=== PATIENT | female | born 1985 | race African-American/Black ===

== ENCOUNTER 2018-11-20 21:31 | Emergency (ER) | payer OTHER ==
[2018-11-20 22:12] VITALS: BP 127/75; PULSE 69; TEMP 98.1; BMI 31.3
--- NOTE | 2018-11-20 23:19 | PDOC ---
History of Present Illness - General Chief Complaint: Pain Stated Complaint: ABDOMINAL CRAMPING Time Seen by Provider: 11/20/18 23:17 History Source: Patient Exam Limitations: No Limitations - History of Present Illness Initial Comments: 33 yo Obese F w a pmh of sciatica and fibroids presents to the ER via private auto for intense cramping. She states she has LLQ abdominal pain which does not radiate and is associated with minor urgency but no dysuria, frequency, or hematuria. She denies having recent fevers, chills or infections. She states she has felt mild nausea but has not experienced any emesis. She denies having a personal or family history of kidney stones. LMP: September 23. Patient states her period is 2 weeks late. PCP: None now. Formerly Marlene Dupree PSH: Fibroid surgical removal Social Hx: Smokes 4 cigarettes per day for 10 years. Denies alcohol or other substance usage. Allergies: NKDA, seasonal. Past History - Past Medical History Allergies/Adverse Reactions: Allergies Allergy/AdvReac Type Severity Reaction Status Date / Time No Known Allergies Allergy Verified 11/20/18 22:12 Home Medications: Ambulatory Orders Ibuprofen 800 mg PO TID PRN #30 tablet 01/29/16 Oxycodone HCl/Acetaminophen [Percocet 5-325 mg Tablet] 1 tab PO Q6H PRN #10 tablet MDD 4 01/29/16 Prednisone [Deltasone] 60 mg PO DAILY #5 tablet 01/29/16 COPD: No Other medical history: chronic back pain - Suicide/Smoking/Psychosocial Hx Smoking History: Current every day smoker Have you smoked in the past 12 months: Yes Number of Cigarettes Smoked Daily: 4 Information on smoking cessation initiated: No Hx Alcohol Use: No Drug/Substance Use Hx: No Substance Use Type: None Review of Systems - Review of Systems Able to Perform ROS?: Yes Comments:: CONSTITUTIONAL: Absent: fever, no chills, no fatigue EYES: Absent: visual changes ENT: Absent: ear pain, no sore throat CARDIOVASCULAR: Absent: chest pain, no palpitations RESPIRATORY: Absent: cough, no SOB GI: Present: Abdominal pain, nausea Absent: no vomiting, no constipation, no diarrhea GENITOURINARY: Present: Urgency Absent: dysuria, no frequency, no hematuria MUSKULOSKELETAL: Absent: back pain, no arthralgia, no myalgia SKIN: Absent: rash NEURO: Absent: headache *Physical Exam - Vital Signs Last Vital Signs Temp Pulse Resp BP Pulse Ox 98.1 F 69 18 127/75 100 11/20/18 22:09 11/20/18 22:09 11/20/18 22:09 11/20/18 22:09 11/20/18 22:09 - Physical Exam Comments: GENERAL: Well-appearing, well-nourished. No apparent distress. HEENT: Normocephalic, atraumatic. PERRL, EOM intact. CARDIOVASCULAR: Normal S1, S2. Regular rate and rhythm. PULMONARY: No evidence of respiratory distress. Lungs clear to auscultation bilaterally. No wheezing, rales or rhonchi. ABDOMEN: Mild Suprapubic TTP. There is also mild LLQ TTP. Abdomen is still soft and non- distended. EXTREMITIES: Normal ROM in all four extremities. No gross deformities. SKIN: Warm, dry. No rash NEUROLOGICAL: No focal neurological deficits. ED Treatment Course - LABORATORY CBC & Chemistry Diagram: 11/21/18 00:05 11/21/18 00:05 Medical Decision Making - Medical Decision Making 33 yo Obese F w a pmh of sciatica and fibroids presents to the ER via private auto for intense cramping. She states she has LLQ abdominal pain which does not radiate and is associated with minor urgency but no dysuria, frequency, or hematuria. She denies having recent fevers, chills or infections. She states she has felt mild nausea but has not experienced any emesis. She denies having a personal or family history of kidney stones. LMP: September 23. Patient states her period is 2 weeks late. VS: WNL DDx IBNLT: - IUP vs ectopic, UTI/pylo, renal colic, Ovarian cyst/ torsion, fibroids Plan: Labs, Urine, TVUS, IV hydration, analgesia, re-assess. Labs: Unremarkable, HCG negative. TVUS: Uterine fibroids Patient feels better after analgesia. Will DC patient with Ob follow up. *DC/Admit/Observation/Transfer Diagnosis at time of Disposition: Abdominal pain, Fibroids - Discharge Dispostion Disposition: HOME Condition at time of disposition: Stable Decision to Admit order: No - Referrals Referrals: Carly Goddard MD [Staff Physician] - - Patient Instructions Printed Discharge Instructions: DI for Uterine Fibroids Additional Instructions: You came into the ER with abdominal pain. The Ultrasound showed you have uterine fibroids. Please make sure to schedule a follow up appointment with an OB doctor in the next 3 to 5 days. We are attaching the number of one for you to call if you don' t have one. Come back to the ER immediately if your pain worsens, you start vomiting, or have any other new or worsening concerns. Thank you for coming to the [facility] ER. We hope you feel better soon! Print Language: HONDURAN - Post Discharge Activity
[2018-11-20] MEDS ORDERED: SODIUM CHLORIDE 1,000 ML IV STA (23:33)
[2018-11-20] MEDS ORDERED: ACETAMINOPHEN 1000 MG/100 ML VIAL (NON FORMULARY) IVPB ONE (23:33)
[2018-11-21 00:30] LABS: PH,URINE 6.5 (5.0-8.0); URINE APPEARANCE CLEAR; URINE BILIRUBIN NEGATIVE (NEGATIVE); URINE COLOR YELLOW; URINE GLUCOSE (UA) NEGATIVE (NEGATIVE); URINE KETONE NEGATIVE (NEGATIVE); URINE LEUK ESTERASE NEGATIVE (NEGATIVE); URINE NITRITE NEGATIVE (NEGATIVE); URINE PROTEIN NEGATIVE (NEGATIVE); URINE UROBILINOGEN 0.2 mg/dL (0.2-1.0)
[2018-11-21 00:31] LABS: EOS % 1.8 % (0-4.5); HEMATOCRIT 36.5 % (32.4-45.2); HEMOGLOBIN 11.7 GM/dL (10.7-15.3); MCH 26.8 pg (25.7-33.7); MCHC 32.2 g/dl (32.0-36.0); MEAN CELL VOLUME 83.3 fl (80-96); MEAN PLT VOLUME 10.8 fl (7.5-11.1); MONO % 5.9 % (3.8-10.2); NEUT % 40.3 % (42.8-82.8); PLATELET COUNT 191 K/MM3 (134-434); RBC 4.38 M/mm3 (3.60-5.2); RDW 14.2 % (11.6-15.6); WHITE BLOOD COUNT 7.2 K/mm3 (4.0-10.0)
[2018-11-21] MEDS ORDERED: ACETAMINOPHEN INJECTION 100 ML IVPB ONE (00:31)
[2018-11-21 00:58] LABS: ALBUMIN 3.7 g/dl (3.4-5.0); ALK PHOS 80 U/L (45-117); ANION GAP 2 MMOL/L (8-16); BILIRUBIN,TOTAL 0.3 mg/dL (0.2-1); BLOOD UREA NITROGEN 13 mg/dL (7-18); CALCIUM 9.9 mg/dL (8.5-10.1); CHLORIDE 108 mmol/L (98-107); CO2 28 mmol/L (21-32); CREATININE 0.7 mg/dL (0.55-1.3); GLUCOSE,RANDOM 89 mg/dL (74-106); LIPASE 109 U/L (73-393); POTASSIUM 4.2 mmol/L (3.5-5.1); SGOT/AST 14 U/L (15-37); SGPT/ALT 19 U/L (13-61); SODIUM 138 mmol/L (136-145); TOT PROT 7.6 g/dl (6.4-8.2)
--- NOTE | 2018-11-21 01:38 | PDOC ---
Documentation entered by Barbra Womack SCRIBE, acting as scribe for Whitney Starr MD. Whitnye Starr MD: This documentation has been prepared by the Vu hancock Daisy, SCRIBE, under my direction and personally reviewed by me in its entirety. I confirm that the documentation accurately reflects all work, treatment, procedures, and medical decision making performed by me. Attending Attestation - Resident Resident Name: Renny Bowman - ED Attending Attestation I have performed the following: I have examined & evaluated the patient, The case was reviewed & discussed with the resident, I agree w/resident's findings & plan - HPI HPI: 11/21/18 01:21 33 yo female p/w some nausea and vomiting and dysuria with left suprapubic pain - Physicial Exam PE: 11/21/18 01:24 wnwd 33 yo female with pelvic discomfort head ncat neck supple lungs cta b/l cvs [id number] abd no rebound, no guarding ext no edema, no tenderness,no deformities skin warm and dry no cva tenderness neuro axox3,ambulatory,no focal neuro deficits psych appropriate - Medical Decision Making 11/21/18 01:28 negative test cbc unremarkable chemistries wnl urinalysis negative pelvic US is pending to r/o ruptures cyst or torsion
--- NOTE | 2018-11-21 08:34 | EKG ---
Test Reason : Blood Pressure : / mmHG Vent. Rate : 066 BPM Atrial Rate : 066 BPM P-R Int : 146 ms QRS Dur : 084 ms QT Int : 388 ms P-R-T Axes : 058 017 014 degrees QTc Int : 406 ms NORMAL SINUS RHYTHM NORMAL ECG NO PREVIOUS ECGS AVAILABLE Confirmed by MD DONAVAN, ASHER ([id number]) on 11/21/2018 8:34:31 AM Referred By: Confirmed By:ASHER GO MD
== END 2018-11-21 03:21 | disposition home or self-care (01) ==
LOC: JER 21:31
PROC: 3E033NZ Introduction of Analgesics, Hypnotics, Sedatives into Peripheral Vein, Percutaneous Approach (ICD-10-PCS; principal; 2018-11-20)
DX: D25.9 Leiomyoma of uterus, unspecified (principal)
CPT/HCPCS: 36415; 76830-TC; 80053; 81003; 83690; 84702; 84703; 85025; 87086; 93005; 93010; 99281-25; J0131; J7030

== ENCOUNTER 2019-05-16 03:42 | Inpatient (IN) | payer OTHER ==
--- NOTE | 2019-05-16 04:16 | PDOC ---
Attending Attestation - Resident Resident Name: Jhonatan Holguin - ED Attending Attestation I have performed the following: I have examined & evaluated the patient, The case was reviewed & discussed with the resident, I agree w/resident's findings & plan - HPI HPI: 05/16/19 05:51 see resident hpi - Physicial Exam PE: 05/16/19 05:52 agree with resident exam - Medical Decision Making 05/16/19 05:52 34-year-old female with left upper back pain and dyspnea D-dimer is elevated Plan for CTA of the chest to rule out pulmonary embolism Tylenol for pain Discharge pending CTA results
[2019-05-16] MEDS ORDERED: ACETAMINOPHEN 1000 MG/100 ML VIAL (NON FORMULARY) IVPB ONE (04:22)
[2019-05-16] MEDS ORDERED: SODIUM CHLORIDE 1,000 ML IV STA (04:22)
[2019-05-16] MEDS ORDERED: ACETAMINOPHEN INJECTION 100 ML IVPB ONE (04:27)
--- NOTE | 2019-05-16 04:29 | PDOC ---
History of Present Illness - General Chief Complaint: Shortness of Breath Stated Complaint: DIFFICULTY BREATHING Time Seen by Provider: 05/16/19 04:16 History Source: Patient Exam Limitations: No Limitations - History of Present Illness Initial Comments: 05/16/19 04:28 34 yo F with a hx of sciatica presents to the emergency department with left posterior pleuritic back pain with sudden onset 2 hours prior to presentation. Denies previous pain in this region in the past. States the pain onsets when she takes deep breaths only and worsens when she lays flat. Denies chest pain but endorses SOB. She states the pain is non radiating. Denies recent travels, hx of DVT/PE, recent surgeries, recent immobilizations, and recent hormone use. Allergies: NKDA Denies alcohol, but endorses 1/4 pack of tobacco use per day and marijuana use weekly. Past History - Past Medical History Allergies/Adverse Reactions: Allergies Allergy/AdvReac Type Severity Reaction Status Date / Time No Known Allergies Allergy Verified 05/16/19 04:20 Home Medications: Ambulatory Orders Ibuprofen 800 mg PO TID PRN #30 tablet 01/29/16 Oxycodone HCl/Acetaminophen [Percocet 5-325 mg Tablet] 1 tab PO Q6H PRN #10 tablet MDD 4 01/29/16 Prednisone [Deltasone] 60 mg PO DAILY #5 tablet 01/29/16 COPD: No - Psycho Social/Smoking Cessation Hx Smoking History: Current some day smoker Have you smoked in the past 12 months: Yes Number of Cigarettes Smoked Daily: 4 Information on smoking cessation initiated: No Hx Alcohol Use: No Drug/Substance Use Hx: No Substance Use Type: None Review of Systems - Review of Systems Able to Perform ROS?: Yes Is the patient limited Greek proficient: No Constitutional: No: Chills, Diaphoresis, Fever, Weakness HEENTM: No: Eye Pain, Ear Pain, Nose Pain, Throat Pain, Mouth Pain Respiratory: Yes: Shortness of Breath. No: Cough, Hemoptysis Cardiac (ROS): No: Chest Pain, Lightheadedness, Palpitations ABD/GI: No: Constipated, Diarrhea, Nausea, Rectal Bleeding, Vomiting, Tarry Stools : No: Burning, Dysuria, Hematuria Musculoskeletal: Yes: Back Pain (left back). No: Joint Pain, Neck Pain Integumentary: No: Bruising, Erythema, Rash Neurological: No: Headache, Numbness, Tingling, Tremors Psychiatric: No: Change in Appetite Endocrine: No: Unexplained Weight Gain Hematologic/Lymphatic: No: Anemia *Physical Exam - Vital Signs Last Vital Signs Temp Pulse Resp BP Pulse Ox 98.4 F 91 H 18 141/86 97 05/16/19 03:45 05/16/19 03:45 05/16/19 03:45 05/16/19 03:45 05/16/19 03:45 - Physical Exam General Appearance: Yes: Nourished, Appropriately Dressed, Obese. No: Apparent Distress, Intoxicated HEENT: positive: EOMI, DIEGO, Normal Voice, Symmetrical, Pharynx Normal, Hearing Grossly Normal. negative: Pale Conjunctivae, Scleral Icterus (R), Scleral Icterus (L), Muffled/Hoarse voice, Pharyngeal Erythema, Tonsillar Exudate, Tonsillar Erythema, Nasal Congestion, Rhinorrhea, Excessive drooling Neck: positive: Trachea midline, Supple. negative: Tender Respiratory/Chest: positive: Lungs Clear, Decreased Breath Sounds. negative: Chest Tender, Respiratory Distress, Accessory Muscle Use Cardiovascular: positive: Regular Rhythm, Regular Rate, S1, S2. negative: Systolic Murmur Gastrointestinal/Abdominal: positive: Normal Bowel Sounds, Flat, Soft. negative : Tender, Distended, Guarding Musculoskeletal: positive: Normal Inspection. negative: CVA Tenderness, Vertebral Tenderness Extremity: positive: Normal Capillary Refill, Normal Inspection, Normal Range of Motion. negative: Tender, Swelling, Calf Tenderness Integumentary: positive: Normal Color, Dry, Warm. negative: Swelling, Ecchymosis Neurologic: positive: Fully Oriented, Alert, Normal Mood/Affect ED Treatment Course - LABORATORY CBC & Chemistry Diagram: 05/16/19 04:30 05/16/19 04:30 Medical Decision Making - Medical Decision Making 34 yo F with a hx of sciatica presents to the emergency department with left posterior pleuritic back pain with sudden onset 2 hours prior to presentation Initial vitals: Initial Vital Signs Temp Pulse Resp BP Pulse Ox 98.4 F 91 H 18 141/86 97 05/16/19 03:45 05/16/19 03:45 05/16/19 03:45 05/16/19 03:45 05/16/19 03:45 Work up: patient presents to the emergency department with SOB with pleuritic like pain in the left upper back. concerns exist for PE vs PNA vs msk strain. will obtain d-dimer, cbc, cmp, ekg, trop, cxr, ua, urine , and urine culture. d-dimer was elevated, will obtain CTA chest. Laboratory Tests 05/16/19 05/16/19 05/16/19 04:30 04:30 04:30 WBC 6.8 RBC 4.45 Hgb 11.2 Hct 35.2 MCV 79.1 L MCH 25.1 L MCHC 31.7 L RDW 13.3 Plt Count 275 D MPV 9.8 Absolute Neuts (auto) 5.0 Neutrophils % 73.5 D Lymphocytes % 16.6 D Monocytes % 7.6 Eosinophils % 1.3 Basophils % 1.0 Nucleated RBC % 0 D-Dimer 946 H Sodium 136 Potassium 4.1 Chloride 103 Carbon Dioxide 27 Anion Gap 6 L BUN 6.6 L Creatinine 0.8 Est GFR (CKD-EPI)AfAm 111.48 Est GFR (CKD-EPI)NonAf 96.19 Random Glucose 97 Calcium 10.2 H Total Bilirubin 0.4 AST 21 ALT 23 Alkaline Phosphatase 149 H Creatine Kinase 98 Troponin I < 0.02 Total Protein 8.1 Albumin 3.4 Serum , Qual Urine Color Urine Appearance Urine pH Ur Specific [place] Urine Protein Urine Glucose (UA) Urine Ketones Urine Blood Urine Nitrite Urine Bilirubin Urine Urobilinogen Ur Leukocyte Esterase 05/16/19 05/16/19 04:30 05:41 WBC RBC Hgb Hct MCV MCH MCHC RDW Plt Count MPV Absolute Neuts (auto) Neutrophils % Lymphocytes % Monocytes % Eosinophils % Basophils % Nucleated RBC % D-Dimer Sodium Potassium Chloride Carbon Dioxide Anion Gap BUN Creatinine Est GFR (CKD-EPI)AfAm Est GFR (CKD-EPI)NonAf Random Glucose Calcium Total Bilirubin AST ALT Alkaline Phosphatase Creatine Kinase Troponin I Total Protein Albumin Serum , Qual Negative Urine Color Yellow Urine Appearance Clear Urine pH 6.5 Ur Specific [place] 1.016 Urine Protein Negative Urine Glucose (UA) Negative Urine Ketones Trace H Urine Blood Negative Urine Nitrite Negative Urine Bilirubin Negative Urine Urobilinogen 0.2 Ur Leukocyte Esterase Negative EKG shows NSR with TN of 144 ms, QRS 78 ms, ventricular rate of 79 bpm, and normal axis. No ST elevations or depressions. 05/16/19 07:31 CT shows pneumonia with possible tumor with metastatic adenopathy. Patient to be admitted for neoplastic work up. Will obtain blood cultures and start on ceftriaxone and azithromax. Patient states her maternal grandmother had breast cancer. Paternal grandfather had cancer of unknown origin. Per the patient, she denies change in consistency of her breasts consistent with lumps Patient to be admitted for PNA with concurrent neoplastic process with metastatic adenopathy. Discharge - Discharge Information Problems reviewed: Yes Clinical Impression/Diagnosis: Pneumonia, Metastatic disease, Shortness of breath Condition: Guarded - Follow up/Referral - Patient Discharge Instructions - Post Discharge Activity
[2019-05-16 04:53] LABS: EOS % 1.3 % (0-4.5); HEMATOCRIT 35.2 % (32.4-45.2); HEMOGLOBIN 11.2 GM/dL (10.7-15.3); LYMPH % 16.6 % (8-40); MCH 25.1 pg (25.7-33.7); MCHC 31.7 g/dl (32.0-36.0); MEAN CELL VOLUME 79.1 fl (80-96); MEAN PLT VOLUME 9.8 fl (7.5-11.1); MONO % 7.6 % (3.8-10.2); NEUT % 73.5 % (42.8-82.8); PLATELET COUNT 275 K/MM3 (134-434); RBC 4.45 M/mm3 (3.60-5.2); RDW 13.3 % (11.6-15.6); WHITE BLOOD COUNT 6.8 K/mm3 (4.0-10.0)
[2019-05-16 05:21] LABS: ALBUMIN 3.4 g/dl (3.4-5.0); ALK PHOS 149 U/L (45-117); ANION GAP 6 MMOL/L (8-16); BILIRUBIN,TOTAL 0.4 mg/dL (0.2-1); BLOOD UREA NITROGEN 6.6 mg/dL (7-18); CALCIUM 10.2 mg/dL (8.5-10.1); CHLORIDE 103 mmol/L (98-107); CO2 27 mmol/L (21-32); CREATININE 0.8 mg/dL (0.55-1.3); GLUCOSE,RANDOM 97 mg/dL (74-106); POTASSIUM 4.1 mmol/L (3.5-5.1); SGOT/AST 21 U/L (15-37); SGPT/ALT 23 U/L (13-61); SODIUM 136 mmol/L (136-145); TOT PROT 8.1 g/dl (6.4-8.2)
[2019-05-16] MEDS ORDERED: CEFTRIAXONE 1,000 MG in DEXTROSE 5%-WATER - 50 ML IVPB ONE (06:47)
[2019-05-16 06:49] LABS: PH,URINE 6.5 (5.0-8.0); URINE APPEARANCE CLEAR; URINE BILIRUBIN NEGATIVE (NEGATIVE); URINE COLOR YELLOW; URINE GLUCOSE (UA) NEGATIVE (NEGATIVE); URINE KETONE TRACE (NEGATIVE); URINE LEUK ESTERASE NEGATIVE (NEGATIVE); URINE NITRITE NEGATIVE (NEGATIVE); URINE PROTEIN NEGATIVE (NEGATIVE); URINE UROBILINOGEN 0.2 mg/dL (0.2-1.0)
[2019-05-16] MEDS ORDERED: AZITHROMYCIN IVPB 500 MG in DEXTROSE 5%-WATER - 250 ML IVPB ONE (07:10)
[2019-05-16] MEDS ORDERED: CEFTRIAXONE 1 GM/50 ML BAG ONE (07:43)
[2019-05-16] MEDS ORDERED: ACETAMINOPHEN 325 MG TABLET (FP) PO PRN (08:26)
[2019-05-16] MEDS ORDERED: AZITHROMYCIN IVPB 500 MG/250 ML BAG IVPB ONE (08:58)
[2019-05-16] MEDS ORDERED: SODIUM CHLORIDE 1,000 ML IV SCH (09:00)
--- NOTE | 2019-05-16 09:01 | PN ---
Teaching Attending Note Name of Resident: Stacey Guajardo ATTENDING PHYSICIAN STATEMENT I saw and evaluated the patient. I reviewed the resident's note and discussed the case with the resident. I agree with the resident's findings and plan as documented. SUBJECTIVE: Patient is a 34yo female with PMHx of sciatica and arthritis who presents with shortness of breath with pleuritic chest pain on deep respiration specially on the left side. No fever or chills, c/o nonproductive cough. OBJECTIVE: Vital Signs Temperature 98.0 F 05/16/19 08:00 Pulse Rate 81 05/16/19 08:00 Respiratory Rate 22 H 05/16/19 08:00 Blood Pressure 140/90 05/16/19 08:00 O2 Sat by Pulse Oximetry (%) 100 05/16/19 08:00 GENERAL: The patient is awake, alert, and fully oriented, in no acute distress. HEAD: Normal with no signs of trauma. EYES: PERRL, extraocular movements intact, sclera anicteric, conjunctiva clear. ENT: Ears normal, oropharynx clear without exudates, moist mucous membranes. NECK: Trachea midline, full range of motion, supple. LUNGS: decreased Breath sounds bl, no wheezes, no crackles, no accessory muscle use. HEART: Regular rate and rhythm, S1, S2 without murmur, rub or gallop. ABDOMEN: Soft, nontender, nondistended, normoactive bowel sounds, no guarding, no rebound, no hepatosplenomegaly, no masses. EXTREMITIES: 2+ pulses, warm, well-perfused, no edema. NEUROLOGICAL: Cranial nerves II through XII grossly intact. Normal speech, gait not observed. PSYCH: Normal mood, normal affect. SKIN: Warm, dry, normal turgor, no rashes or lesions noted CBCD WBC 6.8 K/mm3 (4.0-10.0) 05/16/19 04:30 RBC 4.45 M/mm3 (3.60-5.2) 05/16/19 04:30 Hgb 11.2 GM/dL (10.7-15.3) 05/16/19 04:30 Hct 35.2 % (32.4-45.2) 05/16/19 04:30 MCV 79.1 fl (80-96) L 05/16/19 04:30 MCHC 31.7 g/dl (32.0-36.0) L 05/16/19 04:30 RDW 13.3 % (11.6-15.6) 05/16/19 04:30 Plt Count 275 K/MM3 (134-434) D 05/16/19 04:30 MPV 9.8 fl (7.5-11.1) 05/16/19 04:30 CMP Sodium 136 mmol/L (136-145) 05/16/19 04:30 Potassium 4.1 mmol/L (3.5-5.1) 05/16/19 04:30 Chloride 103 mmol/L (98-107) 05/16/19 04:30 Carbon Dioxide 27 mmol/L (21-32) 05/16/19 04:30 Anion Gap 6 MMOL/L (8-16) L 05/16/19 04:30 BUN 6.6 mg/dL (7-18) L 05/16/19 04:30 Creatinine 0.8 mg/dL (0.55-1.3) 05/16/19 04:30 Random Glucose 97 mg/dL (74-106) 05/16/19 04:30 Calcium 10.2 mg/dL (8.5-10.1) H 05/16/19 04:30 Total Bilirubin 0.4 mg/dL (0.2-1) 05/16/19 04:30 AST 21 U/L (15-37) 05/16/19 04:30 ALT 23 U/L (13-61) 05/16/19 04:30 Alkaline Phosphatase 149 U/L (45-117) H 05/16/19 04:30 Total Protein 8.1 g/dl (6.4-8.2) 05/16/19 04:30 Albumin 3.4 g/dl (3.4-5.0) 05/16/19 04:30 CARDIAC ENZYMES Creatine Kinase 98 U/L (26-192) 05/16/19 04:30 Troponin I < 0.02 ng/ml (0.00-0.05) 05/16/19 04:30 CTA: LLL consolidation/pneumonia , possible tumor with metastatic adenopathy. ASSESSMENT AND PLAN: Patient is a 34yo female with pmhx of sciatica and arthritis who presents with shortness of breath. # LLL Pneumonia: Rocephin/zithro # multiple lung tumor with metastatic adenopathy: pulmonary and hem/onc consult for further w/u # Hypercalcemia r/o bone mets : IVF hydration, bone survey # b/l HILAR Adenopathy can't r/o sarcoid ty. elevated calcium level with Fhx of sarcoid. Bone survey ordered DVT Px: Heparin sq
--- NOTE | 2019-05-16 09:52 | EKG ---
Test Reason : Blood Pressure : / mmHG Vent. Rate : 079 BPM Atrial Rate : 079 BPM P-R Int : 144 ms QRS Dur : 078 ms QT Int : 372 ms P-R-T Axes : 059 -05 -06 degrees QTc Int : 426 ms NORMAL SINUS RHYTHM MINIMAL VOLTAGE CRITERIA FOR LVH, MAY BE NORMAL VARIANT BORDERLINE ECG WHEN COMPARED WITH ECG OF 21-NOV-2018 00:21, NO SIGNIFICANT CHANGE WAS FOUND Confirmed by COY TAYLOR, JARET ([id number]) on 05/16/2019 9:52:30 AM Referred By: Confirmed By:JARET CESPEDES MD
[2019-05-16] MEDS ORDERED: ENOXAPARIN NA (PORCINE) 40 MG/0.4 ML DISP.SYRIN SQ SCH (10:00)
--- NOTE | 2019-05-16 10:20 | HP ---
CHIEF COMPLAINT: shortness of breath PCP: none HISTORY OF PRESENT ILLNESS: 34F w/ pmhx of sciatica and arthritis who presents with shortness of breath. Pt states it started last night around 11pm while she was sitting down at home and associates it with intense spasms in her L flank. Denies ever experiencing this in the past. Says she did some stretching exercises which gave her minimal symptomatic relief, however it persisted soon afterwards. Denies chest pain, f/c , n/v, peña/d, abd pain, urinary/bowel symptoms. States the pain is worse with deep inspiration. Denies history of heart or lung disease, urinary/bowel symptoms. No hx or fam hx of kidney stones. Denies blood in urine or stool. Denies injury or trauma to area. ER course was notable for: (1) BP 153/99, trops neg x1, U/A neg, UCx pending (2) CTA showed mutiple b/l pulm masses strongly suspicious for metastatic disease; large confluent opacity in periphery of LLL may be metastatic lesion and/or consolidation/atelectasis; extensive confluent mediastinal b/l hilar LAD (3) Recent Travel: Denies PAST MEDICAL HISTORY: sciatica arthritis PAST SURGICAL HISTORY: fibroid removal Social History: Smoking: Currently smokes 3-4/day x10 years Alcohol: Denies Drugs: Uses marijuana regularly at least 2x/week Allergies No Known Allergies Allergy (Verified 05/16/19 04:20) HOME MEDICATIONS: NONE as per patient REVIEW OF SYSTEMS CONSTITUTIONAL: Absent: fever, chills, diaphoresis, generalized weakness, malaise, loss of appetite, weight change HEENT: Absent: rhinorrhea, nasal congestion, throat pain, throat swelling, difficulty swallowing, mouth swelling, ear pain, eye pain, visual changes CARDIOVASCULAR: Absent: chest pain, syncope, palpitations, irregular heart rate, lightheadedness , peripheral edema RESPIRATORY: +shortness of breath Absent: cough, dyspnea with exertion, orthopnea, wheezing, stridor, hemoptysis GASTROINTESTINAL: Absent: abdominal pain, abdominal distension, nausea, vomiting, diarrhea, constipation, melena, hematochezia GENITOURINARY: Absent: dysuria, frequency, urgency, hesitancy, hematuria, flank pain, genital pain MUSCULOSKELETAL: +left flank pain Absent: myalgia, arthralgia, joint swelling, back pain, neck pain SKIN: Absent: rash, itching, pallor ENDOCRINE: Absent: unexplained weight gain, unexplained weight loss, heat intolerance, cold intolerance NEUROLOGIC: Absent: headache, focal weakness or paresthesias, dizziness, unsteady gait, seizure, mental status changes, bladder or bowel incontinence PHYSICAL EXAMINATION Vital Signs - 24 hr 05/16/19 05/16/19 05/16/19 03:45 04:40 06:57 Temperature 98.4 F Pulse Rate 91 H 90 Pulse Rate [ 90 86 Left] Respiratory 18 21 H 18 Rate Blood Pressure 141/86 Blood Pressure 153/105 H 153/99 [Left Arm] Blood Pressure 152/115 H [Right Arm] O2 Sat by Pulse 97 100 100 Oximetry (%) 05/16/19 08:00 Temperature 98.0 F Pulse Rate Pulse Rate [ 81 Left] Respiratory 22 H Rate Blood Pressure Blood Pressure [Left Arm] Blood Pressure 140/90 [Right Arm] O2 Sat by Pulse 100 Oximetry (%) GENERAL: AAOx3. NAD. Healthy, well-appearing female. HEENT: AT/NC. EOMI. MMM. NECK: Normal range of motion, supple without lymphadenopathy, JVD, or masses. LUNGS: CTA B/L. No wheezes, rhonchi, rales noted. Symmetric chest rise. No accessory muscle use noted. Speaking in complete sentences. HEART: RRR. Normal S1, S2. No murmurs noted. ABDOMEN: Obese, soft, NT/ND. Normoactive bowel sounds. No masses or deformities noted. MUSCULOSKELETAL: Normal range of motion at all joints. No bony deformities or tenderness. No CVA tenderness. EXTREMITIES: No peripheral edema noted. 5/5 muscle strength NEUROLOGICAL: Cranial nerves II-XII intact. Normal speech. Normal gait. SKIN: Warm, dry, normal turgor, no rashes or lesions noted, normal capillary refill. Laboratory Results - last 24 hr 05/16/19 05/16/19 05/16/19 04:30 04:30 04:30 WBC 6.8 RBC 4.45 Hgb 11.2 Hct 35.2 MCV 79.1 L MCH 25.1 L MCHC 31.7 L RDW 13.3 Plt Count 275 D MPV 9.8 Absolute Neuts (auto) 5.0 Neutrophils % 73.5 D Lymphocytes % 16.6 D Monocytes % 7.6 Eosinophils % 1.3 Basophils % 1.0 Nucleated RBC % 0 D-Dimer 946 H Sodium 136 Potassium 4.1 Chloride 103 Carbon Dioxide 27 Anion Gap 6 L BUN 6.6 L Creatinine 0.8 Est GFR (CKD-EPI)AfAm 111.48 Est GFR (CKD-EPI)NonAf 96.19 Random Glucose 97 Calcium 10.2 H Total Bilirubin 0.4 AST 21 ALT 23 Alkaline Phosphatase 149 H Creatine Kinase 98 Troponin I < 0.02 Total Protein 8.1 Albumin 3.4 Serum , Qual Urine Color Urine Appearance Urine pH Ur Specific [place] Urine Protein Urine Glucose (UA) Urine Ketones Urine Blood Urine Nitrite Urine Bilirubin Urine Urobilinogen Ur Leukocyte Esterase 05/16/19 05/16/19 04:30 05:41 WBC RBC Hgb Hct MCV MCH MCHC RDW Plt Count MPV Absolute Neuts (auto) Neutrophils % Lymphocytes % Monocytes % Eosinophils % Basophils % Nucleated RBC % D-Dimer Sodium Potassium Chloride Carbon Dioxide Anion Gap BUN Creatinine Est GFR (CKD-EPI)AfAm Est GFR (CKD-EPI)NonAf Random Glucose Calcium Total Bilirubin AST ALT Alkaline Phosphatase Creatine Kinase Troponin I Total Protein Albumin Serum , Qual Negative Urine Color Yellow Urine Appearance Clear Urine pH 6.5 Ur Specific [place] 1.016 Urine Protein Negative Urine Glucose (UA) Negative Urine Ketones Trace H Urine Blood Negative Urine Nitrite Negative Urine Bilirubin Negative Urine Urobilinogen 0.2 Ur Leukocyte Esterase Negative ASSESSMENT/PLAN: 34F w/ pmhx of sciatica and arthritis who presents with shortness of breath. #Shortness of breath; 2/2 musculoskeletal pain vs. pneumonia vs. malignancy vs. sarcoidosis -Treated empirically for pneumonia with Ceftriaxone and Azithromycin given x1 in ED -CTA remarkable for findings suspicious for metastatic disease, also metastatic lesion and/or consolidation/atelectasis in LLL -Cont IV Ceftriaxone and Azithro -Onc consulted -Pulm consulted -Bone survey ordered #Diffuse lung metastases with b/l hilar adenopaty -onc consulted -metastatic bone survey -pulm consulted #Hx of Sciatica; Stable. #Hx of Arthrits; Stable. #Prophylaxis DVT: Lovenox #FEN -PO hydration -recheck lytes in AM -Regular diet Dispo -admit to med-surg Visit type - Emergency Visit Emergency Visit: Yes ED Registration Date: 05/16/19 Care time: The patient presented to the Emergency Department on the above date and was hospitalized for further evaluation of their emergent condition. - New Patient This patient is new to me today: Yes Date on this admission: 05/16/19 - Critical Care Critical Care patient: No ATTENDING PHYSICIAN STATEMENT I saw and evaluated the patient. I reviewed the resident's note and discussed the case with the resident. I agree with the resident's findings and plan as documented. SUBJECTIVE: OBJECTIVE: ASSESSMENT AND PLAN:
[2019-05-16] MEDS ORDERED: ENOXAPARIN NA (PORCINE) 40 MG/0.4 ML DISP.SYRIN SQ ONE (10:51)
[2019-05-16 13:27] VITALS: BMI 34.4
[2019-05-16] MEDS ORDERED: FLU VACCINE QUAD 60 MCG/0.5 ML (MDV 19-20) IM ONE (13:27)
--- NOTE | 2019-05-16 14:39 | CONSULT ---
Consult Consult Specialty:: Hematology and oncology Reason for Consultation:: lung masses - History of Present Illness Chief Complaint: SOB, flank pain History of Present Illness: The patient is a 34 yo F w/ pmhx sciatica and arthritis who presented to the ED c/o SOB for the past 1 day as well as associated left flank pain and muscle spasms. CTA was taken to r/o PE and discovered multiple nodules and masses throughout the lungs b/l and associated lymphadenopathy. On interview, patient was well appearing and in no distress. Her pain has improved. She states that she had no prior knowledge of these masses. She denies personal history of cancer or blood disorders. She does endorse that all 4 of her grandparents from various malignancies. She also noted that her aunt has sarcoidosis and one of her grandmothers had lupus. - History Source History Provided By: Patient, Medical Record Limitations to Obtaining History: No Limitations - Past Medical History ...LMP: 05/06/19 ...: No - Alcohol/Substance Use Hx Alcohol Use: No - Smoking History Smoking history: Current some day smoker Have you smoked in the past 12 months: Yes Aproximately how many cigarettes per day: 4 Home Medications - Allergies Allergies/Adverse Reactions: Allergies Allergy/AdvReac Type Severity Reaction Status Date / Time No Known Allergies Allergy Verified 05/16/19 04:20 - Home Medications Home Medications: Ambulatory Orders Ibuprofen 800 mg PO TID PRN #30 tablet 01/29/16 Oxycodone HCl/Acetaminophen [Percocet 5-325 mg Tablet] 1 tab PO Q6H PRN #10 tablet MDD 4 01/29/16 Prednisone [Deltasone] 60 mg PO DAILY #5 tablet 01/29/16 Review of Systems - Review of Systems Constitutional: reports: No Symptoms HENT: reports: No Symptoms Cardiovascular: reports: No Symptoms Respiratory: reports: Other (slight pain on inspiration, improved). denies: Cough, SOB Gastrointestinal: reports: No Symptoms Genitourinary: reports: No Symptoms Musculoskeletal: reports: No Symptoms Physical Exam Vital Signs: Vital Signs Temperature 98.0 F 05/16/19 13:17 Pulse Rate 76 05/16/19 13:17 Respiratory Rate 20 05/16/19 13:17 Blood Pressure 153/96 05/16/19 13:17 O2 Sat by Pulse Oximetry (%) 100 05/16/19 13:17 Constitutional: Yes: Well Nourished, No Distress, Calm HENT: Yes: Atraumatic, Normocephalic Cardiovascular: Yes: Regular Rate and Rhythm, S1, S2. No: Gallop, Murmur, Rub Respiratory: Yes: Regular, CTA Bilaterally Gastrointestinal: Yes: Normal Bowel Sounds, Soft. No: Tenderness Edema: No Neurological: Yes: Alert, Oriented, Cran Nerves II-XII Intact Psychiatric: Yes: Alert, Oriented Labs: CBC, BMP 05/16/19 04:30 05/16/19 04:30 Assessment/Plan The patient is a 34 yo F w/ pmhx sciatica and arthritis who presented to the ED c/o SOB for the past 1 day as well as associated left flank pain and muscle spasms. CTA was taken to r/o PE and discovered multiple nodules and masses throughout the lungs b/l and associated lymphadenopathy. #multiple new masses across both lungs possibly 2/2 sarcoidosis r/o metastatic disease -suspicious for metastatic disease -consider CT abdomen w/ contrast to assess for primary tumor -patient will require tissue diagnosis as part of staging; recommend IR consult/CT surgery consult for possibly external or endobronchial approach. -KARMEN level sent by pulmonary. -calcium elevated 10.5 -consider ID consult for LLL consolidation -will order LDH for AM
--- NOTE | 2019-05-16 15:35 | PN ---
Progress Note (short form) - Note Progress Note: PULMONARY CONSULTATION DICTATED 05/16/19 IMP BILATERAL PULMONARY NODULES,MEDIASTINA/HILAR ADENOPATHY ,?METS, ?SARCOID(+ FH OF SARCOID) LEFT LOWER LOBE CONSOLIDATION ? PNEUMONIA H/O UTERINE FIBROIDS PLAN ABX NEEDS TISSUE DIAGNOSIS CT GUIDED BX IF NON-DIAGNOSTIC EBUS O2 NEEDED KARMEN LEVEL CRP DR HICKS Problem List - Problems (1) Back pain Code(s): M54.9 - DORSALGIA, UNSPECIFIED Qualifiers: Back pain location: low back pain Chronicity: acute Back pain laterality : left Sciatica presence: with sciatica Sciatica laterality: sciatica of left side Qualified Code(s): M54.42 - Lumbago with sciatica, left side (2) Bilateral pulmonary metastases Code(s): C78.01 - SECONDARY MALIGNANT NEOPLASM OF RIGHT LUNG; C78.02 - SECONDARY MALIGNANT NEOPLASM OF LEFT LUNG (3) Mediastinal adenopathy Code(s): R59.0 - LOCALIZED ENLARGED LYMPH NODES (4) Hilar adenopathy Code(s): R59.0 - LOCALIZED ENLARGED LYMPH NODES
--- NOTE | 2019-05-16 17:34 | CONS ---
DATE OF CONSULTATION: 05/16/2019 PULMONARY CONSULTATION REFERRING PHYSICIAN: Haley Mar M.D. HISTORY OF PRESENT ILLNESS: The patient is a 34-year-old black female with past medical history of sciatica, history of uterine fibroid status post surgery, arthritis, smoking approximately 3-4 cigarettes a day for 10 years, admitted to [facility] with complaint of left posterior chest pain. Patient states she was at home and started developing chest pain. She also complained of increasing shortness of breath. She presented to the emergency room with the above. Of note is also this past week or so the patient has been complaining of cough, productive of yellow sputum, no fever, no chills, mild shortness of breath. She did not take antibiotics. The patient's symptoms did not improve, and last night when she again developed left lower posterior chest pain. She presented to the emergency room with the above. In the ER, she underwent a chest CTA which revealed bilateral pulmonary masses and extensive hilar and mediastinal adenopathy. She underwent a metastatic bone series, results are pending. Of note, the patient denies any fevers, weight loss, night sweats. Denies any hemoptysis. Of note is her mother's sister has Sarcoidosis. She denies any history of recent travel. She has no pets at home. There are no occupational exposures. PAST MEDICAL HISTORY: Again includes uterine fibroids, sciatica, arthritis. REVIEW OF SYSTEMS: No orthopnea, no PND, positive mild shortness of breath with exertion, positive cough, positive posterior chest pain, no fever, no chills, no hemoptysis, no abdominal pain, no lower extremity edema. CURRENT MEDICATIONS: Include Zithromax, ceftriaxone, Lovenox, and Tylenol. PHYSICAL EXAMINATION: General: The patient is an obese female, awake, alert, in no acute distress. She is afebrile. Vital Signs: Blood pressure 153/96, respiratory rate 20, O2 saturation is 100% on room air. HEENT: Normocephalic, atraumatic. Neck: Supple. Heart: Regular S1, S2. Chest: Clear. Abdomen: Soft, bowel sounds positive. Extremities: No cyanosis, edema. LABORATORY: WBC is 6.8, hemoglobin 11.2, hematocrit 35.2, with platelet count of 275,000. D-dimer is 946. BUN 0.6, creatinine 0.8, alkaline phosphatase 149, calcium 10.2. Chest CT again no evidence of pulmonary embolus, multiple bilateral pulmonary masses large left lower lobe consolidation, and extensive mediastinal and hilar adenopathy. IMPRESSION: 1. Extensive bilateral mediastinal hilar adenopathy and bilateral pulmonary masses. Rule out possible malignancy, metastases. r/o Sarcoid 2. Left lower lobe consolidation, rule out pneumonia. 3. Patient has a 1-week history of cough and chest congestion and sputum production, has history of uterine fibroids. PLAN: Antibiotics. Supplemental O2. Patient needs tissue diagnosis ,will consult interventional radiology for CT guided biopsy. IF bx nondiagnostic recommend thoracic surgical consultation for EBUS. HIRAL HICKS M.D. TESFAYE/[id number] MTDD
--- NOTE | 2019-05-16 20:01 | PN ---
Teaching Attending Note Name of Resident: Gilberto Mcduffie ATTENDING PHYSICIAN STATEMENT I saw and evaluated the patient. I reviewed the resident's note and discussed the case with the resident. I agree with the resident's findings and plan as documented. 34 y/o lady w/ pmhx sciatica and arthritis who presented to the ED c/o SOB for the past 1 day as well as associated left flank pain and muscle spasms. CTA was taken to r/o PE and discovered multiple nodules and masses throughout the lungs b/l and associated lymphadenopathy. SUBJECTIVE: Mentioned back pain improving. OBJECTIVE: Last Vital Signs Temp Pulse Resp BP Pulse Ox 97.2 F L 94 H 20 186/91 H 100 05/16/19 19:34 05/16/19 19:34 05/16/19 19:34 05/16/19 19:34 05/16/19 13:17 General: NAD HEENT: MMM CVS: S1, S2 Lungs: Crackles but mostly clear to auscultation Abdomen: Soft, NT Extremities: No edema Skin: No rash Neuro: Moves all extremities Psych: Alert , Oriented, Conversant, Appropriate ASSESSMENT AND PLAN: 34 y/o lady w/ pmhx sciatica and arthritis who presented to the ED c/o SOB for the past 1 day as well as associated left flank pain and muscle spasms. CTA was taken to r/o PE and discovered multiple nodules and masses throughout the lungs b/l and associated lymphadenopathy. She mentioned had uterine fibroids removed in 2017 and is up to date with her mammograms and PAP screenings. Mentioned her 4 grandparents had cancer, 1 blood (did not know type), 1 throat and the other 2 unknown type as well. Had one family member (grandmother?) with sarcoidosis and an aunt with Lupus. Smokes 3-4 cigarettes per day. Lymphangioleiomyomatosis unlikely as masses do not look cystic. Recommend: 1) Tissue biopsy. Consult IR vs. EBUS. 2) Obtain LDH. 3) CT Abdomen/Pelvis with contrast to rule out overt malignancy. 4) Consider ID evaluation for possible atypical fungal infection,TB, etc. Consider Fungitell testing. 5) R/O Sarcoidosis. Consider further work-up including Ophthalmology evaluation , PFTs, etc per primary team and Pulmonary. 6) Thank you for this consultation.
[2019-05-17 08:15] LABS: HEMATOCRIT 33.3 % (32.4-45.2); HEMOGLOBIN 10.7 GM/dL (10.7-15.3); MCH 25.1 pg (25.7-33.7); MCHC 32.2 g/dl (32.0-36.0); MEAN CELL VOLUME 77.9 fl (80-96); MEAN PLT VOLUME 10.2 fl (7.5-11.1); PLATELET COUNT 262 K/MM3 (134-434); RBC 4.27 M/mm3 (3.60-5.2); RDW 13.5 % (11.6-15.6); WHITE BLOOD COUNT 5.5 K/mm3 (4.0-10.0)
[2019-05-17 08:59] LABS: ALBUMIN 2.9 g/dl (3.4-5.0); BILIRUBIN,TOTAL 0.6 mg/dL (0.2-1); CALCIUM 9.6 mg/dL (8.5-10.1); CREATININE 0.7 mg/dL (0.55-1.3); POTASSIUM 4.3 mmol/L (3.5-5.1); TOT PROT 7.1 g/dl (6.4-8.2)
--- NOTE | 2019-05-17 10:36 | PN ---
Progress Note (short form) - Note Progress Note: PULMONARY Still some pleuritic back pain. No fevers or chills. Vital Signs Period Temp Pulse Resp BP Sys/Boland Pulse Ox Last 24 Hr 97.2 F-98.3 F 75-94 17-20 143-186/91-100 100-100 Gen: NAD at rest Heart: RRR Lung: decreased breath sounds at the bases Abd: soft, nontender Ext: no edema CBC, BMP 05/17/19 07:12 05/17/19 07:12 Active Medications Acetaminophen (Tylenol -) 650 mg PO Q4H PRN PRN Reason: PAIN LEVEL 6-10 Last Admin: 05/16/19 17:07 Dose: 650 mg Azithromycin (Zithromax 500mg Ivpb (Pre-Docked)) 500 mg in 250 mls @ 250 mls/ hr IVPB DAILY ANASTASIA Ceftriaxone Sodium 1 gm/ (Dextrose) 50 mls @ 100 mls/hr IVPB DAILY ANASTASIA; Protocol A/P Lung Nodules Mediastinal Lymphadenopathy r/o Malignancy vs Sarcoidosis r/o Pneumonia - continue antibiotics - pain control - for CT guided biopsy today - f/u KARMEN
[2019-05-17] MEDS ORDERED: cefTRIAXone SODIUM 1 GM VIAL ONE (11:15)
[2019-05-17] MEDS ORDERED: DEXTROSE 5%-WATER - 50 ML IVPB ONE (11:15)
[2019-05-17] MEDS: CEFTRIAXONE 1 GM in DEXTROSE 5%-WATER - 50 ML IVPB SCH (11:28)
[2019-05-17 11:34] LABS: INR 1.13 (0.83-1.09); PROTHROMBIN TIME (PATIENT) 13.3 SEC (9.7-13.0)
[2019-05-17] MEDS: AZITHROMYCIN IVPB 500 MG/250 ML BAG IVPB SCH (11:54)
--- NOTE | 2019-05-17 14:05 | PN ---
Progress Note (short form) - Note Progress Note: Thoracic Surgery: Agree with plan for ct guided biopsy. May need second biopsy to confirm if this is not malignant.
--- NOTE | 2019-05-17 15:13 | PN ---
Physical Exam: SUBJECTIVE: Patient seen and examined in the morning today. no acute events overnight. Has some pleuritic pain and dry cough. No shortness of breath, no fever, no chest pain, no abdominal pain, no myalgias. OBJECTIVE: Vital Signs Period Temp Pulse Resp BP Sys/Boland Pulse Ox Last 24 Hr 97.2 F-98.7 F 65-94 16-21 127-186/83-95 99-100 GENERAL: The patient is awake, alert, and fully oriented, in no acute distress. HEAD: Normal with no signs of trauma. EYES: PERRL, extraocular movements intact, sclera anicteric, conjunctiva clear. No ptosis. LUNGS: Breath sounds equal, clear to auscultation bilaterally, no wheezes, no crackles, no accessory muscle use. HEART: Regular rate and rhythm, S1, S2 without murmur, rub or gallop. ABDOMEN: Soft, nontender, nondistended, normoactive bowel sounds, no guarding, no rebound. NEUROLOGICAL: Cranial nerves II through XII grossly intact. SKIN: Warm, dry, normal turgor, no rashes or lesions noted Laboratory Results - last 24 hr 05/16/19 05/17/19 05/17/19 04:30 07:12 07:12 WBC 5.5 RBC 4.27 Hgb 10.7 Hct 33.3 MCV 77.9 L MCH 25.1 L MCHC 32.2 RDW 13.5 Plt Count 262 MPV 10.2 PT with INR INR Sodium 136 138 Potassium 4.1 4.3 Chloride 103 108 H Carbon Dioxide 27 24 Anion Gap 6 L 7 L BUN 6.6 L 7.0 Creatinine 0.8 0.7 Est GFR (CKD-EPI)AfAm 111.48 131.02 Est GFR (CKD-EPI)NonAf 96.19 113.04 Random Glucose 97 87 Calcium 10.2 H 9.6 Total Bilirubin 0.4 0.6 AST 21 15 ALT 23 22 Alkaline Phosphatase 149 H 130 H LD Total 221 Creatine Kinase 98 Troponin I < 0.02 C-Reactive Protein 3.0 H Total Protein 8.1 7.1 Albumin 3.4 2.9 L 05/17/19 10:08 WBC RBC Hgb Hct MCV MCH MCHC RDW Plt Count MPV PT with INR 13.30 H INR 1.13 H Sodium Potassium Chloride Carbon Dioxide Anion Gap BUN Creatinine Est GFR (CKD-EPI)AfAm Est GFR (CKD-EPI)NonAf Random Glucose Calcium Total Bilirubin AST ALT Alkaline Phosphatase LD Total Creatine Kinase Troponin I C-Reactive Protein Total Protein Albumin Active Medications Generic Name Dose Route Start Last Admin Trade Name Freq PRN Reason Stop Dose Admin Acetaminophen 650 mg 05/16/19 08:26 05/16/19 17:07 Tylenol - PO 650 mg Q4H PRN Administration PAIN LEVEL 6-10 Azithromycin 500 mg in 250 mls @ 250 mls/hr 05/17/19 10:00 05/17/19 11:54 Zithromax 500mg Ivpb (Pre-Docked) IVPB 250 mls/hr DAILY ANASTASIA Administration Ceftriaxone Sodium 1 gm/ 50 mls @ 100 mls/hr 05/17/19 10:00 05/17/19 11:28 Dextrose IVPB 100 mls/hr DAILY ANASTASIA Administration Protocol ASSESSMENT/PLAN: 34 F with PMH of sciatica and arthritis who presented with shortness of breath. When evaluated to rule out P/E, multiple pulmonary nodules were found. 1) Pulmonary nodules: rule out metastatic cancer vs sarcoidosis -Family history significant for sarcoidosis in maternal aunt, lupus in maternal grandmother. - CT guided biopsy today -Appreciate pulmonology recommendations -Continuing ceftriaxone 1 gram IV QD and azithromycin 500 mg IV QD -Follow up KARMEN level 2) Shortness of breath -Resolved 3)History of Sciatica -No pain today, stable 4) Hx of Arthritis -Continue Tylenol PRN for arthritis F: No fluids E: Monitor CMP N:NPO until biopsy. Visit type - Emergency Visit Emergency Visit: Yes ED Registration Date: 05/16/19 Care time: The patient presented to the Emergency Department on the above date and was hospitalized for further evaluation of their emergent condition. - New Patient This patient is new to me today: Yes Date on this admission: 05/17/19 - Critical Care Critical Care patient: No ATTENDING PHYSICIAN STATEMENT I saw and evaluated the patient. I reviewed the resident's note and discussed the case with the resident. I agree with the resident's findings and plan as documented. SUBJECTIVE: OBJECTIVE: ASSESSMENT AND PLAN:
--- NOTE | 2019-05-17 18:28 | PN ---
Teaching Attending Note Name of Resident: Grabiel Mcwilliams ATTENDING PHYSICIAN STATEMENT I saw and evaluated the patient. I reviewed the resident's note and discussed the case with the resident. I agree with the resident's findings and plan as documented. SUBJECTIVE: Patient is going for bx today. No fever or chills, no shortness of breath. OBJECTIVE: Vital Signs Temperature 98.7 F 05/17/19 13:38 Pulse Rate 78 05/17/19 13:38 Respiratory Rate 16 05/17/19 13:38 Blood Pressure 148/91 05/17/19 13:38 O2 Sat by Pulse Oximetry (%) 100 05/17/19 13:11 GENERAL: The patient is awake, alert, and fully oriented, in no acute distress. HEAD: Normal with no signs of trauma. EYES: PERRL, extraocular movements intact, sclera anicteric, conjunctiva clear. ENT: Ears normal, oropharynx clear without exudates, moist mucous membranes. NECK: Trachea midline, full range of motion, supple. LUNGS: Breath sounds equal, clear to auscultation bilaterally, no wheezes, no crackles, no accessory muscle use. HEART: Regular rate and rhythm, S1, S2 without murmur, rub or gallop. ABDOMEN: Soft, NT,ND, normoactive bowel sounds, no guarding, no rebound, no hepatosplenomegaly, no masses. EXTREMITIES: 2+ pulses, warm, well-perfused, no edema. NEUROLOGICAL: Cranial nerves II through XII grossly intact. Normal speech, gait not observed. PSYCH: Normal mood, normal affect. SKIN: Warm, dry, normal turgor, no rashes or lesions noted CBCD WBC 5.5 K/mm3 (4.0-10.0) 05/17/19 07:12 RBC 4.27 M/mm3 (3.60-5.2) 05/17/19 07:12 Hgb 10.7 GM/dL (10.7-15.3) 05/17/19 07:12 Hct 33.3 % (32.4-45.2) 05/17/19 07:12 MCV 77.9 fl (80-96) L 05/17/19 07:12 MCHC 32.2 g/dl (32.0-36.0) 05/17/19 07:12 RDW 13.5 % (11.6-15.6) 05/17/19 07:12 Plt Count 262 K/MM3 (134-434) 05/17/19 07:12 MPV 10.2 fl (7.5-11.1) 05/17/19 07:12 CMP Sodium 138 mmol/L (136-145) 05/17/19 07:12 Potassium 4.3 mmol/L (3.5-5.1) 05/17/19 07:12 Chloride 108 mmol/L (98-107) H 05/17/19 07:12 Carbon Dioxide 24 mmol/L (21-32) 05/17/19 07:12 Anion Gap 7 MMOL/L (8-16) L 05/17/19 07:12 BUN 7.0 mg/dL (7-18) 05/17/19 07:12 Creatinine 0.7 mg/dL (0.55-1.3) 05/17/19 07:12 Random Glucose 87 mg/dL (74-106) 05/17/19 07:12 Calcium 9.6 mg/dL (8.5-10.1) 05/17/19 07:12 Total Bilirubin 0.6 mg/dL (0.2-1) 05/17/19 07:12 AST 15 U/L (15-37) 05/17/19 07:12 ALT 22 U/L (13-61) 05/17/19 07:12 Alkaline Phosphatase 130 U/L (45-117) H 05/17/19 07:12 Total Protein 7.1 g/dl (6.4-8.2) 05/17/19 07:12 Albumin 2.9 g/dl (3.4-5.0) L 05/17/19 07:12 CARDIAC ENZYMES Creatine Kinase 98 U/L (26-192) 05/16/19 04:30 Troponin I < 0.02 ng/ml (0.00-0.05) 05/16/19 04:30 Current Medications Generic Name Dose Route Start Last Admin Trade Name Freq PRN Reason Stop Dose Admin Acetaminophen 650 mg 05/16/19 08:26 05/16/19 17:07 Tylenol - PO 650 mg Q4H PRN Administration PAIN LEVEL 6-10 Azithromycin 500 mg in 250 mls @ 250 mls/hr 05/17/19 10:00 05/17/19 11:54 Zithromax 500mg Ivpb (Pre-Docked) IVPB 250 mls/hr DAILY ANASTASIA Administration Ceftriaxone Sodium 1 gm/ 50 mls @ 100 mls/hr 05/17/19 10:00 05/17/19 11:28 Dextrose IVPB 100 mls/hr DAILY ANASTASIA Administration Protocol Home Medications Medication Instructions Recorded Ibuprofen 800 mg PO TID PRN #30 tablet 01/29/16 Prednisone [Deltasone] 60 mg PO DAILY #5 tablet 01/29/16 Oxycodone HCl/Acetaminophen 1 tab PO BID PRN 05/17/19 [Percocet 5-325 mg Tablet] CTA: LLL consolidation/pneumonia , possible tumor with metastatic adenopathy. ASSESSMENT AND PLAN: Patient is a 34yo female with pmhx of sciatica and arthritis who presents with shortness of breath. # LLL Pneumonia: Rocephin/zithro continue , pulm. on the case # multiple lung tumor with metastatic adenopathy: pulmonary and hem/onc consult appreciated. Core bx of RLL lung nodule was done by IR, waiting for pathology report. # Hypercalcemia r/o bone mets : IVF hydration, bone survey # b/l HILAR Adenopathy can't r/o sarcoid ty. elevated calcium level with Fhx of sarcoid. Bone survey ordered DVT Px: Heparin sq was consulted.
[2019-05-18 08:06] LABS: BASO % 1.2 % (0-2.0); EOS % 1.7 % (0-4.5); HEMATOCRIT 34.2 % (32.4-45.2); HEMOGLOBIN 10.9 GM/dL (10.7-15.3); LYMPH % 29.9 % (8-40); MCH 24.9 pg (25.7-33.7); MCHC 31.9 g/dl (32.0-36.0); MEAN CELL VOLUME 78.1 fl (80-96); MEAN PLT VOLUME 9.8 fl (7.5-11.1); MONO % 9.9 % (3.8-10.2); NEUT % 57.3 % (42.8-82.8); PLATELET COUNT 293 K/MM3 (134-434); RBC 4.38 M/mm3 (3.60-5.2); RDW 13.6 % (11.6-15.6); WHITE BLOOD COUNT 5.3 K/mm3 (4.0-10.0)
[2019-05-18 08:30] LABS: ALBUMIN 2.9 g/dl (3.4-5.0); BILIRUBIN,TOTAL 0.5 mg/dL (0.2-1); BLOOD UREA NITROGEN 7.4 mg/dL (7-18); CALCIUM 9.6 mg/dL (8.5-10.1); CREATININE 0.7 mg/dL (0.55-1.3); POTASSIUM 3.9 mmol/L (3.5-5.1); TOT PROT 7.2 g/dl (6.4-8.2)
[2019-05-18] MEDS: HEPARIN NA (PORCINE) 5,000 UNITS/ML 1ML VIAL SQ SCH ×2 (08:30→15:30)
[2019-05-18] MEDS ORDERED: cefTRIAXone SODIUM 1 GM VIAL ONE (10:24)
[2019-05-18] MEDS ORDERED: DEXTROSE 5%-WATER - 50 ML IVPB ONE (10:25)
[2019-05-18] MEDS: CEFTRIAXONE 1 GM in DEXTROSE 5%-WATER - 50 ML IVPB SCH (10:49)
[2019-05-18] MEDS: AZITHROMYCIN IVPB 500 MG/250 ML BAG IVPB SCH (11:44)
--- NOTE | 2019-05-18 12:43 | PN ---
Progress Note (short form) - Note Progress Note: PULMONARY CHART REVIEWED FEELS WELL WANTS TO GO HOME AFEBRILE ANICTERIC CHEST CLEAR S1S2 BS+ NO EDEMA LABS/MEDS/IMAGES REVIEWED PATH: GRANULOMATOUS INFLAMMATION LIKELY DIAGNOSIS IS SARCOIDOSIS HOWEVER OTHER GRANULOMATOUS PROCESSES WILL BE RULED OUT VIA SPECIAL STAINING WOULD SUGGEST PREDNISONE 40 MG DAILY OK TO DISCHARGE HOME AFTER REPEAT CXR POST NEEDLE BIOSY. Cyndee BILLS MD
--- NOTE | 2019-05-18 14:30 | PN ---
Teaching Attending Note Name of Resident: Grabiel Mcwilliams ATTENDING PHYSICIAN STATEMENT I saw and evaluated the patient. I reviewed the resident's note and discussed the case with the resident. I agree with the resident's findings and plan as documented. SUBJECTIVE: Patient is comfortable with no acute distress. OBJECTIVE: Vital Signs Temperature 98.5 F 05/18/19 10:00 Pulse Rate 80 05/18/19 10:00 Respiratory Rate 18 05/18/19 10:00 Blood Pressure 136/80 05/18/19 10:00 O2 Sat by Pulse Oximetry (%) 97 05/17/19 21:00 GENERAL: The patient is awake, alert, and fully oriented, in no acute distress. HEAD: Normal with no signs of trauma. EYES: PERRL, extraocular movements intact, sclera anicteric, conjunctiva clear. ENT: Ears normal, oropharynx clear without exudates, moist mucous membranes. NECK: Trachea midline, full range of motion, supple. LUNGS: Breath sounds equal, clear to auscultation bilaterally, no wheezes, no crackles, no accessory muscle use. HEART: Regular rate and rhythm, S1, S2 without murmur, rub or gallop. ABDOMEN: Soft, NT,ND, normoactive bowel sounds, no guarding, no rebound, no hepatosplenomegaly, no masses. EXTREMITIES: 2+ pulses, warm, well-perfused, no edema. NEUROLOGICAL: Cranial nerves II through XII grossly intact. Normal speech, gait not observed. PSYCH: Normal mood, normal affect. SKIN: Warm, dry, normal turgor, no rashes or lesions noted CBCD WBC 5.3 K/mm3 (4.0-10.0) 05/18/19 07:30 RBC 4.38 M/mm3 (3.60-5.2) 05/18/19 07:30 Hgb 10.9 GM/dL (10.7-15.3) 05/18/19 07:30 Hct 34.2 % (32.4-45.2) 05/18/19 07:30 MCV 78.1 fl (80-96) L 05/18/19 07:30 MCHC 31.9 g/dl (32.0-36.0) L 05/18/19 07:30 RDW 13.6 % (11.6-15.6) 05/18/19 07:30 Plt Count 293 K/MM3 (134-434) 05/18/19 07:30 MPV 9.8 fl (7.5-11.1) 05/18/19 07:30 CMP Sodium 138 mmol/L (136-145) 05/18/19 07:30 Potassium 3.9 mmol/L (3.5-5.1) 05/18/19 07:30 Chloride 106 mmol/L (98-107) 05/18/19 07:30 Carbon Dioxide 24 mmol/L (21-32) 05/18/19 07:30 Anion Gap 7 MMOL/L (8-16) L 05/18/19 07:30 BUN 7.4 mg/dL (7-18) 05/18/19 07:30 Creatinine 0.7 mg/dL (0.55-1.3) 05/18/19 07:30 Random Glucose 91 mg/dL (74-106) 05/18/19 07:30 Calcium 9.6 mg/dL (8.5-10.1) 05/18/19 07:30 Total Bilirubin 0.5 mg/dL (0.2-1) 05/18/19 07:30 AST 15 U/L (15-37) 05/18/19 07:30 ALT 20 U/L (13-61) 05/18/19 07:30 Alkaline Phosphatase 132 U/L (45-117) H 05/18/19 07:30 Total Protein 7.2 g/dl (6.4-8.2) 05/18/19 07:30 Albumin 2.9 g/dl (3.4-5.0) L 05/18/19 07:30 CARDIAC ENZYMES Creatine Kinase 98 U/L (26-192) 05/16/19 04:30 Troponin I < 0.02 ng/ml (0.00-0.05) 05/16/19 04:30 Current Medications Generic Name Dose Route Start Last Admin Trade Name Freq PRN Reason Stop Dose Admin Acetaminophen 650 mg 05/16/19 08:26 05/16/19 17:07 Tylenol - PO 650 mg Q4H PRN Administration PAIN LEVEL 6-10 Heparin Sodium (Porcine) 5,000 unit 05/18/19 07:30 05/18/19 08:30 Heparin - SQ 5,000 unit TID ANASTASIA Administration Azithromycin 500 mg in 250 mls @ 250 mls/hr 05/17/19 10:00 05/18/19 11:44 Zithromax 500mg Ivpb (Pre-Docked) IVPB 250 mls/hr DAILY ANASTASIA Administration Ceftriaxone Sodium 1 gm/ 50 mls @ 100 mls/hr 05/17/19 10:00 05/18/19 10:49 Dextrose IVPB 100 mls/hr DAILY ANASTASIA Administration Protocol Home Medications Medication Instructions Recorded Cefuroxime Axetil [Ceftin -] 500 mg PO Q12H #10 tablet 05/18/19 Prednisone [Deltasone] 60 mg PO DAILY #30 tablet 05/18/19 CTA: LLL consolidation/pneumonia , possible tumor with metastatic adenopathy. ASSESSMENT AND PLAN: Patient is a 34yo female with pmhx of sciatica and arthritis who presents with shortness of breath. # LLL Pneumonia: Rocephin/zithro continue ,will discharge the patient on ceftin 500mg bid, and prednisone 60mg as per pulm. will follow up within a week period and discuss the Bx result as well. # multiple lung tumor with metastatic adenopathy: pulmonary and hem/onc consult appreciated. s/p Core bx of RLL lung nodule was done by IR, waiting for pathology report, patient will follow up with the clinic and the pulmonary for final report # Hypercalcemia r/o bone mets : IVF hydration, bone survey is pending the read, follow up with the pulm and the clinic. # b/l HILAR Adenopathy can't r/o sarcoid ty. elevated calcium level with Fhx of sarcoid. Bone survey ordered DVT Px: Heparin sq was consulted follow up with dr bergman
--- NOTE | 2019-05-18 14:53 | PN ---
Progress Note (short form) - Note Progress Note: Hematology and oncology followup Subjective: Patient seen and examined at bedside. Patient's SOB is improved today. No other complaints. Objective: Vital Signs Temperature 98.5 F 05/18/19 10:00 Pulse Rate 80 05/18/19 10:00 Respiratory Rate 18 05/18/19 10:00 Blood Pressure 136/80 05/18/19 10:00 O2 Sat by Pulse Oximetry (%) 97 05/17/19 21:00 Physical exam: Gen: well appearing found lying in bed in NAD lungs: CTA b/l down to the bases Heart: RRR s1, s2, heard. no murmus, gallops, rubs heard Abdomen: soft, nontender, nondistended, bowel sounds heard Active Medications Acetaminophen (Tylenol -) 650 mg PO Q4H PRN PRN Reason: PAIN LEVEL 6-10 Last Admin: 05/16/19 17:07 Dose: 650 mg Heparin Sodium (Porcine) (Heparin -) 5,000 unit SQ TID ANASTASIA Last Admin: 05/18/19 08:30 Dose: 5,000 unit Azithromycin (Zithromax 500mg Ivpb (Pre-Docked)) 500 mg in 250 mls @ 250 mls/ hr IVPB DAILY [facility] Last Admin: 05/18/19 11:44 Dose: 250 mls/hr Ceftriaxone Sodium 1 gm/ (Dextrose) 50 mls @ 100 mls/hr IVPB DAILY [facility]; Protocol Last Admin: 05/18/19 10:49 Dose: 100 mls/hr Home Medications Medication Instructions Recorded Ibuprofen 800 mg PO TID PRN #30 tablet 01/29/16 Prednisone [Deltasone] 60 mg PO DAILY #5 tablet 01/29/16 Oxycodone HCl/Acetaminophen 1 tab PO BID PRN 05/17/19 [Percocet 5-325 mg Tablet] Cefuroxime Axetil [Ceftin -] 500 mg PO Q12H #10 tablet 05/18/19 Allergies Allergy/AdvReac Type Severity Reaction Status Date / Time No Known Allergies Allergy Verified 05/16/19 04:20 CBC, BMP 05/18/19 07:30 05/18/19 07:30 Assessment and plan: The patient is a 34 yo F w/ pmhx sciatica and arthritis who presented to the ED c/o SOB for the past 1 day as well as associated left flank pain and muscle spasms. CTA was taken to r/o PE and discovered multiple nodules and masses throughout the lungs b/l and associated lymphadenopathy. #multiple new masses across both lungs possibly 2/2 sarcoidosis r/o metastatic disease -s/p lung bx by IR. Preliminary results show granulomatous inflammation -Pulmonology initiated prednisone to treat for presumptive sarcoidosis -f/u final pathology to r/o malignancy decisively.
[2019-05-18 15:54] VITALS: BP 130/83; PULSE 78; TEMP 98.2
--- NOTE | 2019-05-18 16:38 | CONSULT ---
Consult Consult Specialty:: Thoracic Surgery Referred by:: Medicine Reason for Consultation:: Mediastinal adenopathy and multiple nodules - History Source History Provided By: Patient, Medical Record Limitations to Obtaining History: No Limitations - Past Medical History RESOURCE AGENT: No: Alzheimer's, CVA, Dementia, Migraine, Multiple Sclerosis, Peripheral Neuropathy, Parkinson's, Seizure, Syncope, TIA, Vertigo, Other Cardio/Vascular: No: AFIB, Aneurysm, Aortic Insufficiency, Aortic Stenosis, CAD , CHF, Deep Vein Thrombosis, HTN, Hyperlipdemia, [place], Mitral Insufficiency, Mitral Stenosis, Murmur, Pulmonary Hypertension, Other Pulmonary: No: Asthma, Bronchitis, Cancer, COPD, O2 Dependent, Pneumonia, Previously Intubated, Pulmonary Embolus, Pulmonary Fibrosis, Sleep Apnea, Other Gastrointestinal: No: Ascites, Cancer, Constipation, Crohn's Disease, Diverticulitis, Diverticulosis, Esophageal Varices, Gastritis, GERD, GI Bleed, Hemorrhoids, Hiatal Hernia, Inflamatory Bowel Disease, Irritable Bowel Disease, Pancreatitis, Peptic Ulcer Disease, Ulcerative Colitis, Other Hepatobiliary: No: Cirrhosis, Cholelithiasis, Cholecystitis, Choledocholithiasis , Hepatitis A, Hepatitis B, Hepatitis C, Other ...LMP: 05/06/19 ...: No Heme/Onc: No: Anemia, B12 Deficiency, Bleeding Disorder, Cancer, Current Chemotherapy, Current Radiation Therapy, Hemochromatosis, Hypercoaguable State, Myeloproliferative Synd, Sickle Cell Disease, Sickle Cell Trait, Thrombocytopenia, Other Infectious Disease: No: AIDS, C-Diff, Herpes Zoster, HIV, MRSA, STD's, Tuberculosis, VREF, Other Musculoskeletal: Yes: Other (sciatica) - Alcohol/Substance Use Hx Alcohol Use: No - Smoking History Smoking history: Current some day smoker Have you smoked in the past 12 months: Yes Aproximately how many cigarettes per day: 4 Home Medications - Allergies Allergies/Adverse Reactions: Allergies Allergy/AdvReac Type Severity Reaction Status Date / Time No Known Allergies Allergy Verified 05/16/19 04:20 - Home Medications Home Medications: Ambulatory Orders Cefuroxime Axetil [Ceftin -] 500 mg PO Q12H #10 tablet 05/18/19 Prednisone [Deltasone] 60 mg PO DAILY #30 tablet 05/18/19 Family Medical History Other Family History: Aunt with sarcoid Review of Systems - Review of Systems Constitutional: reports: Weakness Eyes: reports: No Symptoms HENT: reports: No Symptoms Neck: reports: No Symptoms Cardiovascular: reports: Chest Pain Respiratory: reports: Other (pleuritic chest pain) Gastrointestinal: reports: No Symptoms Genitourinary: reports: No Symptoms Breasts: reports: Skin Changes Physical Exam Vital Signs: Vital Signs Temperature 98.2 F 05/18/19 15:00 Pulse Rate 78 05/18/19 15:00 Respiratory Rate 18 05/18/19 15:00 Blood Pressure 130/83 05/18/19 15:00 O2 Sat by Pulse Oximetry (%) 97 05/17/19 21:00 Constitutional: Yes: Well Nourished Eyes: Yes: WNL HENT: Yes: WNL Cardiovascular: Yes: WNL Respiratory: Yes: Other (decreased breath sounds left) Labs: CBC, BMP 05/18/19 07:30 05/18/19 07:30 Imaging - Results Chest X-ray: Image Reviewed Problem List - Problems (1) Hilar adenopathy Code(s): R59.0 - LOCALIZED ENLARGED LYMPH NODES (2) Mediastinal adenopathy Code(s): R59.0 - LOCALIZED ENLARGED LYMPH NODES (3) Shortness of breath Code(s): R06.02 - SHORTNESS OF BREATH (4) Sciatica Code(s): M54.30 - SCIATICA, UNSPECIFIED SIDE Qualifiers: Laterality: bilateral Qualified Code(s): M54.31 - Sciatica, right side Assessment/Plan Mulitple nodules with hilar adenopathy: diff includes benign such as sarcoid, wegeners, and malignant disease. Prelim results c/w sarcoid. I am available for reconsultation.
--- NOTE | 2019-05-18 20:24 | DS ---
Physical Exam: SUBJECTIVE: Patient seen and examined in the morning. No acute events overnight. Patient complains of occasional productive cough, but denies chest pain, shortness of breath, myalgias, fever, chills, and abdominal pain. OBJECTIVE: Vital Signs Period Temp Pulse Resp BP Sys/B[place]and Pulse Ox Last 24 Hr 98.2 F-98.7 F 78-80 18-18 130-155/80-99 97 PHYSICAL EXAM GENERAL: The patient is awake, alert, and fully oriented, in no acute distress. HEAD: Normal with no signs of trauma. NECK: Trachea midline, full range of motion, supple. LUNGS: Breath sounds equal, clear to auscultation bilaterally, no wheezes, no crackles, no accessory muscle use. HEART: Regular rate and rhythm, S1, S2 without murmur, rub or gallop. ABDOMEN: Soft, nontender, nondistended, normoactive bowel sounds. EXTREMITIES: 2+ pulses, warm, well-perfused, no edema. NEUROLOGICAL: Cranial nerves II through XII grossly intact. PSYCH: Normal mood, normal affect. SKIN: no rashes or lesions noted. LABS Laboratory Results - last 24 hr 05/18/19 05/18/19 07:30 07:30 WBC 5.3 RBC 4.38 Hgb 10.9 Hct 34.2 MCV 78.1 L MCH 24.9 L MCHC 31.9 L RDW 13.6 Plt Count 293 MPV 9.8 Absolute Neuts (auto) 3.1 Neutrophils % 57.3 D Lymphocytes % 29.9 D Monocytes % 9.9 Eosinophils % 1.7 Basophils % 1.2 Nucleated RBC % 0 Sodium 138 Potassium 3.9 Chloride 106 Carbon Dioxide 24 Anion Gap 7 L BUN 7.4 Creatinine 0.7 Est GFR (CKD-EPI)AfAm 131.02 Est GFR (CKD-EPI)NonAf 113.04 Random Glucose 91 Calcium 9.6 Total Bilirubin 0.5 AST 15 ALT 20 Alkaline Phosphatase 132 H Total Protein 7.2 Albumin 2.9 L HOSPITAL COURSE: Date of Admission:05/16/19 Date of Discharge: 05/18/19 34F with PMH of sciatica and arthritis in her back who was admitted to the hospital for shortness of breath. Upon admission to the hospital patient received a CT of her chest to rule out P/E. CT chest showed multiple masses in b /l lungs suspicious for metastatic disease and bilateral hilar adenopathy. Patient was admitted and heme/onc and pulmonology consulted.Patient was started on azithromycin and ceftriaxone. Metastatic bone survey was completed in order to rule out other sites of possible metastates. CT guided lung biopsy was done which resulted, with preliminary pathology report showing granulamatous inflammation. Pulmonology believes most likely sarcoidosis, and patient was stable enough for outpatient follow up. Discharged with prednisone 60 mg PO Daily for 10 days, and Ceftin 500 mg BID for 5 days. Imaging done this visit: CT chest: No evidence of pulmonary embolism, multiple bilateral pulmonary masses strongly suspicious for metastatic disease, large confluent opacity within periphery of left lower lobe that may represent a mestastic lesion and or consolidation atelectasis, extensive bilateral hilar adenopathy and mediastinal adenopathy. Lung Biopsy: successful core biopsy of right lower lobe lung nodule. Chest X-ray: No sign of gross pneumothorax following lung biopsy. Bilateral metastatic lung lesions with possible left lung infiltrate. Minutes to complete discharge: 35 Discharge Summary Problems reviewed: Yes Reason For Visit: MASS OF PARENCHYMA OF LUNG,PNEUMONIA Condition: Good - Instructions Diet, Activity, Other Instructions: You were admitted to the hospital because of shortness of breath. While in the hospital we treated you with antibiotics and did a scan of your lungs. This scan showed multiple masses in the lungs, and we were not certain of what caused them. We did a lung biopsy to help find the cause of the masses. We also scanned your bones for further information. You will be able to follow up these results with the transfer and pumphouse operator. You are being prescribed these medications: Prednisone 60 mg by mouth once a day, please follow up with in a week period since you are on high dose steroid that needs to be adjusted and monitored. they will discuss the biopsy result with you as well. Please follow up with Dr. Dahl within one week. Please make an appointment with a PCP within one week. Return to the emergency department if you have any chest pain, difficultly breathing, fevers, nausea and vomiting, or worsening of your symptoms. Referrals: [facility] [place] [facility] [place] [facility] [place] [Provider Group] - 1 Week Wolfgang Dahl MD [Staff Physician] - 1 Week Jose Everett MD [Staff Physician] - 2 Weeks Disposition: HOME - Home Medications Comprehensive Discharge Medication List: Ambulatory Orders Cefuroxime Axetil [Ceftin -] 500 mg PO Q12H #10 tablet 05/18/19 Prednisone [Deltasone] 60 mg PO DAILY #30 tablet 05/18/19 This patient is new to me today: No Emergency Visit: Yes ED Registration Date: 05/16/19 Care time: The patient presented to the Emergency Department on the above date and was hospitalized for further evaluation of their emergent condition. Critical Care patient: No - Discharge Referral Referred to [facility] Med P.C.: No ATTENDING PHYSICIAN STATEMENT I saw and evaluated the patient. I reviewed the resident's note and discussed the case with the resident. I agree with the resident's findings and plan as documented. SUBJECTIVE: OBJECTIVE: ASSESSMENT AND PLAN:
--- NOTE | 2019-05-22 13:00 | PATH ---
Surgical Pathology Report Patient Name: PAULINE CASTANO Med. Rec. #: [id number] /Age/Gender: 1985 (Age: 34) / F Account: [id number] Location: [address] [place] [address]/[facility] Taken: 05/17/2019 Received: 05/17/2019 Reported: 05/22/2019 Physicians: Juancarlos Najera M.D. Robert DeMatteo, M.D. Specimen(s) Received RIGHT LUNG BIOPSY Clinical History 34 year old female with extensive bilateral lung nodules, mediastinal and hilar lymphadenopathy Final Diagnosis RIGHT LUNG BIOPSY: LUNG TISSUE WITH GRANULOMATOUS INFLAMMATION. SEE COMMENT: Comment: The lung biopsy is predominantly comprised of granulomatous inflammation. Although nonnecrotizing granulomas predominate, small foci of pink necrosis is seen at the edge of the specimen. Immunohistochemistry stain AE1/AE3 highlights trapped benign lung epithelium. No histologic evidence of necrotizing vasculitis identified in this material. AFB stain, PAS for fungi, and GMS stains are negative for organisms. The differential diagnoses include sarcoidosis, infection lung disease (including mycobacteria, fungi, and parasites), hypersensitivity pneumonitis, hot tub lung, bronchocentric granulomatosis, among others. Correlation with culture results, clinical and radiologic settings are essential for a definitive diagnosis. Immunohistochemistry stain AE1/AE3 performed and interpreted at [facility]. Positive and negative controls show appropriate results. This case was discussed with Dr. Cohn on May 18, 2019. Electronically Signed Najma Chong M.D. Gross Description Received in formalin labeled "right lung biopsy," are 4 fajardo, cylindrical portions of soft tissue ranging from 0.4-1.4 cm in length and averaging 0.1 cm in diameter. The specimens are submitted in toto in one cassette. 05/17/2019 saudi05/17/2019
== END 2019-05-18 18:28 | disposition home or self-care (01) | DRG 196 ==
LOC: JER 03:42 → JERBED 07:26 → J6S 12:48
PROVIDERS: ADMIT Internal Medicine; ATTEND Internal Medicine
PROC: 0BBF3ZX Excision of Right Lower Lung Lobe, Percutaneous Approach, Diagnostic (ICD-10-PCS; principal; 2019-05-17)
DX: D86.0 Sarcoidosis of lung (principal); J18.9 Pneumonia, unspecified organism; J98.11 Atelectasis; R91.8 Other nonspecific abnormal finding of lung field; R59.0 Localized enlarged lymph nodes; R06.02 Shortness of breath; M54.31 Sciatica, right side; E83.52 Hypercalcemia
CPT/HCPCS: 32405; 36415; 71045-TC-FY; 71275-TC; 77012-TC; 77074-TC-FY; 80053; 81003; 82550; 83615; 84484; 84703; 85025; 85027; 85379; 85610; 86140; 87040; 87086; 88305-TC; 93005; 93010; 99285-25; J0131; J1644; J7030; Q2036

== ENCOUNTER 2020-11-24 12:46 | Emergency (ER) | payer OTHER ==
[2020-11-24 12:57] VITALS: BP 137/85; PULSE 71; TEMP 98.1; BMI 39.1
[2020-11-24 14:33] LABS: BASO % 1.1 % (0-2.0); EOS % 2.4 % (0-4.5); HEMATOCRIT 40.1 % (32.4-45.2); HEMOGLOBIN 12.9 GM/dL (10.7-15.3); LYMPH % 35.9 % (8-40); MCH 26.2 pg (25.7-33.7); MCHC 32.1 g/dl (32.0-36.0); MEAN CELL VOLUME 81.6 fl (80-96); MEAN PLT VOLUME 10.2 fl (7.5-11.1); MONO % 4.5 % (3.8-10.2); NEUT % 56.1 % (42.8-82.8); PLATELET COUNT 264 K/MM3 (134-434); RBC 4.92 M/mm3 (3.60-5.2); RDW 14.2 % (11.6-15.6); WHITE BLOOD COUNT 6.9 K/mm3 (4.0-10.0)
[2020-11-24 14:50] LABS: EPI CELLS 11 /uL (0-25.1); HYALINE CASTS 4 /uL (0-3.1); PH,URINE 5.5 (5.0-8.0); URINE APPEARANCE CLEAR; URINE BACTERIA 37 /uL (0-1359); URINE BILIRUBIN NEGATIVE (NEGATIVE); URINE COLOR YELLOW; URINE GLUCOSE (UA) NEGATIVE (NEGATIVE); URINE KETONE NEGATIVE (NEGATIVE); URINE LEUK ESTERASE TRACE (NEGATIVE); URINE NITRITE NEGATIVE (NEGATIVE); URINE PROTEIN TRACE (NEGATIVE); URINE RBC 26 /uL (0-23.9); URINE UROBILINOGEN 0.2 mg/dL (0.2-1.0); URINE WBC 64 /uL (0-25.8)
[2020-11-24 14:56] LABS: ALBUMIN 4.1 g/dl (3.4-5.0); BLOOD UREA NITROGEN 7.1 mg/dL (7-18); CALCIUM 9.6 mg/dL (8.5-10.1)
[2020-11-24 14:59] LABS: CREATININE 0.9 mg/dL (0.55-1.3)
[2020-11-24 15:01] LABS: BILIRUBIN,TOTAL 0.5 mg/dL (0.2-1); TOT PROT 8.4 g/dl (6.4-8.2)
[2020-11-24 15:36] LABS: HCG,QUALITATIVE URINE NEGATIVE
== END 2020-11-24 17:30 | disposition home or self-care (01) ==
LOC: JER 12:46
DX: N93.9 Abnormal uterine and vaginal bleeding, unspecified (principal)
CPT/HCPCS: 36415; 76817-TC; 80053; 81003; 84702; 84703; 85025; 86850; 86900; 86901; 87086; 99284-25